=== PATIENT | female | born 1955 | race Caucasian/White ===

== ENCOUNTER 2024-02-25 17:34 | Emergency (ER) | payer OTHER, SELFPAY ==
--- NOTE | 2024-02-25 17:37 | EKG_ITS ---
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
[2024-02-25 17:44] VITALS: BP 165/88; PULSE 86; RESP 16; TEMP 36.8; O2SAT 95; BMI 34.7
--- NOTE | 2024-02-25 18:02 | XR_ITS ---
Examination: PA lateral chest 2 views Technique: Upright PA lateral chest 2 views Indications: Coughing beginning 3 days ago. Exam date and time: February 25, 2024 1800 hrs. Findings: Suspicious for early left base retrocardiac pneumonia, obscuring detail left hemidiaphragm Right lung clear Normal heart size Impression: Suspicious for early left base pneumonia
--- NOTE | 2024-02-25 18:05 | PD.EDRME ---
Rapid Medical Screening Exam E Arrival date/time: 02/25/24 17:34 This is a 68-year-old female that comes into the emergency room with complaints of dizziness and shortness of breath. Patient states that she was dealing with an upper respiratory infection for the about a week and also lost her voice. Patient felt like she was doing a little bit better but yesterday worsened. Patient was seen by a telemetry doctor and was given a prescription for breathing treatments and also cough medicine. Patient states they have not helped her and she now feels anxious, complains of shortness of breath and dizziness. Patient denies past medical history. I have greeted and performed a focused initial assessment of this patient. Initial appropriate labs ordered at this time. A comprehensive ED assessment and evaluation of the patient and analysis of all test and completion of medical decision making process will be conducted by additional ED provider. Chief Complaint: General Adult/Misc Complain Time Seen by Provider: 02/25/24 17:48 Vital signs: Vital Signs Temperature 98.3 F 02/25/24 17:44 Pulse Rate 86 02/25/24 17:44 Respiratory Rate 16 02/25/24 17:44 Blood Pressure 165/88 H 02/25/24 17:44 Pulse Oximetry (%) 95 02/25/24 17:44 Oxygen Delivery Method Room Air 02/25/24 17:44
[2024-02-25 18:13] VITALS: PULSE 76; PULSE 87; RESP 18; O2SAT 99
[2024-02-25] MEDS: SODIUM CHLORIDE RT SOL 0.9% 3 ML NEBU INH (18:13)
[2024-02-25] MEDS: ALBUTEROL RT 2.5 MG/0.5 ML NEBU INH (18:13)
[2024-02-25 18:30] LABS: Basophils % (Auto) 0 % (0-2.5); Eosinophils # (Auto) 0.1 Thou/mm3 (0.0-0.5); Eosinophils % (Auto) 2 % (0-10); Hematocrit 39.8 % (36.0-46.0); Hemoglobin 13.7 g/dL (12.0-16.0); Immature Granulocytes % (Auto) 0 % (0-0); Immature Granulocytes Auto 0.01 Thou/mm3 (0.00-0.00); Lymphocytes # (Auto) 3.7 Thou/mm3 (1.0-4.8); Lymphocytes % (Auto) 57 % (10-50); Mean Corpuscular HGB Conc 34.4 g/dl (31.0-37.0); Mean Corpuscular Hemoglobin 30.9 pg (25.0-35.0); Mean Corpuscular Volume 90 fL (80-100); Monocytes # (Auto) 0.4 Thou/mm3 (0.0-0.8); Monocytes % (Auto) 6 % (0-12); Neutrophils # (Auto) 2.3 Thou/mm3 (1.8-7.7); Neutrophils % (Auto) 35 % (37-80); Nucleated Red Blood Cell % 0 /100 WBC (0); Platelet Count 228 Thou/mm3 (140-440); RDW Standard Deviation 41.1 fL (36.4-46.3); Red Blood Count 4.44 Miln/mm3 (4.00-5.20); White Blood Count 6.5 Thou/mm3 (3.6-11.0)
[2024-02-25 18:46] LABS: B-Type Natriuretic Peptide 75 pg/mL (0-100)
[2024-02-25 18:47] LABS: Alanine Aminotransferase 37 U/L (10-49); Albumin, Serum 4.6 gm/dL (3.4-4.8); Albumin/Globulin Ratio 1.9 (1.2-2.2); Alkaline Phosphatase 83 U/L (46-116); Anion Gap 10 (7-16); Aspartate Amino Transferase 24 U/L (0-34); BUN/Creatinine Ratio 10 Ratio (12-20); Bilirubin,Total 0.5 mg/dL (0.3-1.2); Blood Urea Nitrogen 9 mg/dL (9-23); Calcium 9.5 mg/dL (8.3-10.6); Calcium (Corrected) 9.5 mg/dL (8.5-10.1); Carbon Dioxide 26.3 mMol/L (20.0-31.0); Chloride 105 mMol/L (98-107); Creatinine (Component) 0.9 mg/dL (0.6-1.3); Estimated Creatinine Clearance 61.5 mL/min (>60); Globulin 2.4 gm/dL (2.3-3.5); Glucose 103 mg/dL (74-106); Osmolality,Calculated 279 (275-295); Potassium 4.1 mMol/L (3.4-5.1); Sodium 141 mMol/L (136-145); Troponin I < 0.020 ng/mL (0.0-0.045); eGFR > 60 See Note
[2024-02-25 19:25] VITALS: BP 162/72; PULSE 77; RESP 18; TEMP 36.8; O2SAT 96
--- NOTE | 2024-02-25 19:48 | EDNOTE_ITS ---
ED General RME/HPI General Chief complaint: General Adult/Misc Complain Stated complaint: DIZZY x 2 DAYS, HIGH BP TODAY Time Seen by Provider: 02/25/24 17:48 Arrival date/time: 02/25/24 17:34 Nasal congestion sore throat hoarse voice nighttime cough HPI ongoing for 7 days without a fever although her family members ill with a similar symptoms all after coming home from a vacation in [place]. 2 other friends afflicted with the same illness at the same time is now recovered continues to have his nighttime cough. Telemedicine was contacted yesterday who gave her albuterol inhaler nighttime cough medication however the patient still continues to feel like she cannot breathe and her sinuses are full . Patient denies chest pain or difficulty breathing. Patient is awake alert oriented with stable vital signs RME / HPI RME / HPI narrative: 02/25/24 17:34 This is a 68-year-old female that comes into the emergency room with complaints of dizziness and shortness of breath. Patient states that she was dealing with an upper respiratory infection for the about a week and also lost her voice. Patient felt like she was doing a little bit better but yesterday worsened. Patient was seen by a telemetry doctor and was given a prescription for breathing treatments and also cough medicine. Patient states they have not helped her and she now feels anxious, complains of shortness of breath and dizziness. Patient denies past medical history. I have greeted and performed a focused initial assessment of this patient. Initial appropriate labs ordered at this time. A comprehensive ED assessment and evaluation of the patient and analysis of all test and completion of medical decision making process will be conducted by additional ED provider. Related Data Previous Rx's ?Medication ?Instructions ?Recorded cetirizine 10 mg tablet 10 mg PO QDAY PRN allergy symptoms 02/25/24 #14 tabs prednisone 20 mg tablet See Taper PO BID 3 days #6 tabs 02/25/24 Allergies Allergy/AdvReac Type Severity Reaction Status Date / Time No Known Allergies Allergy Verified 02/25/24 17:37 Review of Systems Review of Systems Narrative Review of Systems: GEN: No fever, no chills, no weight loss EYES: No discharge, no visual changes, no pain HEENT: No ear pain, + congestion, + sore throat,+ lost her voice PULM: No shortness of breath, no cough, no congestion CV: No chest pain, no dyspnea on exertion, no palpitations GI: No nausea, no vomiting, no diarrhea, no pain, no constipation : No frequency, no urgency, no dysuria MUSC/SKEL: No joint pain, no back pain SKIN: No rash PSYCH: No hallucinations, no depression HEME/LYMPH: No easy bleeding or bruising tendencies NEURO: No weakness, no headache Past Medical History Past Medical History CARDIAC: Negative Congestive Heart Failure RESPIRATORY: Negative Chronic Obstructive Pulmonary Disease (COPD) GENITOURINARY: Negative Renal Disease ENDOCRINE: Negative Diabetes Mellitus Type 1 or Diabetes Mellitus Type 2 Social History SMOKING STATUS: Never smoker ED Exam Narrative Physical exam: [General: In mild discomfort but not in any acute distress Head normocephalic HEENT: Eyes pupils are PERRLA EOMs are intact mouth pink moist membranes uvula is midline swallow symmetrical nose: No nasal flaring no rhinorrhea epistaxis. All other subsystems of HEENT are within acceptable limits Neck is supple nontender no edema no JVD no LAD Chest equal chest rise nontender to palpation Respiratory: End expiratory crackles left side greater than right. No tachypnea upper lobes are clear CV: Rate rhythm is regular no murmurs rubs or clicks Abdomen is soft nontender no masses positive bowel sounds all 4 quadrants Back: No CVA tenderness no spinous process tenderness from cervical spine thoracic and lumbar spine Skin: Intact no petechiae rash induration ulceration or crepitus Extremities: Moving all extremity against resistance cap refill less than 2 seconds neurosensory intact Neuro: Awake alert oriented x3 Glascow coma 15 no focal deficits] Course Quality Measures none Orders Category Date Time Status EKG (ED ONLY) *Do not use* NOW Care 02/25/24 17:37 Completed EKG (ED Only) Stat Exams 02/25/24 17:37 Draft XR chest 2V Stat Exams 02/25/24 18:02 Completed BNP [B-Type Natriuretic Peptide] Stat Lab 02/25/24 18:14 Completed CBC Stat Lab 02/25/24 18:14 Completed Comprehensive Metabolic Panel Stat Lab 02/25/24 18:14 Completed Troponin I Stat Lab 02/25/24 18:14 Completed ALBUTEROL RT 0.5ml [Proventil Rt 0.5ml] Med 02/25/24 18:01 Discontinued 2.5 mg INH X1 ONE Sodium Chloride Rt Mayra 0.9% [NS Rt Mayra 0.9%] Med 02/25/24 18:01 Active 3 ml INH PRN PRN Vital Signs Vital signs: Vital Signs Temperature 98.3 F 02/25/24 17:44 Pulse Rate 86 02/25/24 17:44 Respiratory Rate 16 02/25/24 17:44 Blood Pressure 165/88 H 02/25/24 17:44 Pulse Oximetry (%) 95 02/25/24 17:44 Oxygen Delivery Method Room Air 02/25/24 17:44 [facility] Patient data External records reviewed:: [facility] previous records Clinical information provided by:: patient and spouse Social determinants that could affect healthcare access:: none Patient has the following chronic illnesses:: None How is presenting disease/condition affected by chronic disease/condition?: u neffected by Evaluation data The following diagnostics were reviewed and interpreted by me:: lab results and radiology exam(s) Lab and/or radiology exams considered but not ordered:: EKG performed at 1742 shows a ventricular rate of 86 HI interval 139 QRS of 82 QTc of 404 sinus rhythm no significant ST segment elevation depression CBC shows no leukocytosis anemia thrombocytopenia CMP shows no electrolyte imbalances renal impairment transaminitis or T. bili elevation Troponin is negative BMP is negative Chest x-ray as interpreted by me read by radiology as suspicious for very mild left base pneumonia Interpretation Summary: Given the parts of the symptoms have resolved, the patient has no significant loose leukocytosis I am suspicious this is viral. In addition the medicines he already taken I will add a 3-day course of steroids, and cetirizine. Patient is to rest drink plenty of fluids. If there is a worsening of symptoms including spiking of a fever or acute onsets of shortness of breath patient is to return the emergency room for reevaluation. Medications Medications considered but not ordered:: None Medication administrations:: Medication Administration History Sodium Chloride (Sodium Chloride Rt Mayra 0.9% 3 Ml Nebu) 3 ml INH PRN PRN PRN Reason: SOLN Stop: 03/26/24 18:00 Last Admin: 02/25/24 18:13 Dose: 3 ml Documented By: Discontinued Medications Albuterol (Albuterol Rt 2.5 Mg/0.5 Ml Nebu) 2.5 mg INH X1 ONE Stop: 02/25/24 18:02 Last Admin: 02/25/24 18:13 Dose: 2.5 mg Documented By: CHARLEY None Consultations Consultation(s) initiated? (list below): No Diagnosis Differential Diagnosis ED Complaint MDM: Pneumonia viral syndrome URI Most likely diagnosis given after review of the tests above:: Viral syndrome Admission Indicated Admission indicated?: not indicated Explain why admission is indicated or not indicated:: Viral syndrome Admission Request Was there a request for admission?: No Disposition Plan Disposition Plan: Discharge Discharge Attestation Discharge Attestation: The patient and all family members were given an opportunity to ask questions and understood the discharge instructions. Discharge instructions specifically effects, indications for sooner follow up or return to the emergency department, and the expected course of current diagnosis. Patient condition: Stable Medical Decision Making Differential Diagnosis Differential Diagnosis: Pneumonia viral syndrome URI Lab Data 02/25/24 18:14 02/25/24 18:14 Labs: Lab Results 02/25/24 Range/Units 18:14 WBC 6.5 (3.6-11.0) Thou/mm3 RBC 4.44 (4.00-5.20) Miln/mm3 Hgb 13.7 (12.0-16.0) g/dL Hct 39.8 (36.0-46.0) % MCV 90 (80-100) fL MCH 30.9 (25.0-35.0) pg MCHC 34.4 (31.0-37.0) g/dl RDW Std Deviation 41.1 (36.4-46.3) fL Plt Count 228 (140-440) Thou/mm3 Neut % (Auto) 35 L (37-80) % Lymph % (Auto) 57 H (10-50) % [place] % (Auto) 6 (0-12) % Eos % (Auto) 2 (0-10) % Baso % (Auto) 0 (0-2.5) % Neut # (Auto) 2.3 (1.8-7.7) Thou/mm3 Lymph # (Auto) 3.7 (1.0-4.8) Thou/mm3 [place] # (Auto) 0.4 (0.0-0.8) Thou/mm3 Eos # (Auto) 0.1 (0.0-0.5) Thou/mm3 Baso # (Auto) 0.0 (0.0-0.2) Thou/mm3 Immature Gran # (Auto) 0.01 H (0.00-0.00) Thou/mm3 Absolute Nucleated RBC 0.00 (0.00-0.00) Thou/mm3 Immature Gran % 0 (0-0) % Nucleated RBC % 0 (0) /100 WBC Sodium 141 (136-145) mMol/L Potassium 4.1 (3.4-5.1) mMol/L Chloride 105 (98-107) mMol/L Carbon Dioxide 26.3 (20.0-31.0) mMol/L Anion Gap 10 (7-16) BUN 9 (9-23) mg/dL Creatinine 0.9 (0.6-1.3) mg/dL Estim Creat Clear Calc 61.5 (>60) mL/min eGFR > 60 (60 - ) See Note BUN/Creatinine Ratio 10 L (12-20) Ratio Glucose 103 (74-106) mg/dL Calculated Osmolality 279 (275-295) Calcium 9.5 (8.3-10.6) mg/dL Corrected Calcium 9.5 (8.5-10.1) mg/dL Total Bilirubin 0.5 (0.3-1.2) mg/dL AST 24 (0-34) U/L ALT 37 (10-49) U/L Alkaline Phosphatase 83 (46-116) U/L Troponin I < 0.020 (0.0-0.045) ng/mL B-Natriuretic Peptide 75 (0-100) pg/mL Total Protein 7.0 (5.7-8.2) gm/dL Albumin 4.6 (3.4-4.8) gm/dL Globulin 2.4 (2.3-3.5) gm/dL Albumin/Globulin Ratio 1.9 (1.2-2.2) Discharge Plan Plan Patient Disposition: HOME (Self Care) Patient condition on transfer: Stable Prescriptions/Referrals Prescriptions/Med Rec: New prednisone 20 mg tablet See Taper PO BID 3 Days Qty: 6 0RF Taper: Prednisone Taper 20 mg DAILY for 2 Days and 0 Hour 10 mg DAILY for 2 Days and 0 Hour 5 mg DAILY for 7 Days and 0 Hour cetirizine 10 mg tablet 10 mg PO QDAY PRN (Reason: allergy symptoms) Qty: 14 0RF Referrals: Ramos Casillas MD [Primary Care Provider] - In 1 week Problem List Clinical Impression: Viral syndrome Patient/Caregiver Discharge Instructions Other Activity Instructions:: Take the medications prescribed to you as well as the medications I prescribed to you for relief of symptoms if there is worsening of symptoms including shortness of breath productive cough or high fever return the emergency room for reevaluation. Education Materials: ED Viral Syndrome (Adult) Print Language: [place] Leone[place] Stand Alone Forms: Bushra Award Info., Work/School Release, Patient Portal Info Letter SHORTY/ELEAZAR Supervising Physician PA/ELEAZAR Supervising Physician: Refugio Gupta ENP
== END 2024-02-25 20:02 | disposition home or self-care (01) ==
PROVIDERS: Nurse Practitioner Family; Emergency Provider Emergency Medicine; PCP Family Medicine
DX: B34.9 Viral infection, unspecified (principal)
CPT/HCPCS: 36415; 71046; 80053; 83880; 84484; 85025; 93005; 94640; 99283

== ENCOUNTER 2024-02-26 17:26 | Emergency (ER) | payer OTHER, SELFPAY ==
--- NOTE | 2024-02-26 18:03 | PC.NURSE ---
PATIENT TOLD SECURITY THEY WERE LEAVING, GOING HOME. @[id number]
== END 2024-02-26 19:09 | disposition left against medical advice (07) ==
PROVIDERS: Emergency Provider Emergency Medicine
DX: Z53.21 Procedure and treatment not carried out due to patient leaving prior to being seen by health care provider (principal)

== ENCOUNTER → 2024-03-07 | Outpatient (CLI) | payer OTHER, SELFPAY ==
--- NOTE | 2024-03-07 14:08 | XR_ITS ---
Examination: PA lateral chest 2 views TECHNIQUE: Upright PA lateral chest 2 views Exam date and time: March 07, 2024 1449 hours Comparison February 25, 2024 INDICATIONS: Pneumonia left base on earlier chest film FINDINGS: Mild pneumonia left base Right lung clear Normal heart size IMPRESSION: Mild pneumonia remains left base
== END | disposition home or self-care (01) ==
PROVIDERS: PCP Family Medicine; Referring Provider Physician Assistant; Visit Provider Physician Assistant
DX: J18.9 Pneumonia, unspecified organism (principal)
CPT/HCPCS: 71046

== ENCOUNTER → 2024-05-24 | Outpatient (CLI) | payer OTHER, SELFPAY ==
[2024-05-24 08:06] LABS: Collection Type, Urine Clean Catch
[2024-05-24 08:30] LABS: Basophils % (Auto) 0 % (0-2.5); Eosinophils # (Auto) 0.3 Thou/mm3 (0.0-0.5); Eosinophils % (Auto) 4 % (0-10); Hematocrit 38.6 % (36.0-46.0); Hemoglobin 12.9 g/dL (12.0-16.0); Immature Granulocytes % (Auto) 0 % (0-0); Immature Granulocytes Auto 0.01 Thou/mm3 (0.00-0.00); Lymphocytes # (Auto) 3.2 Thou/mm3 (1.0-4.8); Lymphocytes % (Auto) 44 % (10-50); Mean Corpuscular HGB Conc 33.4 g/dl (31.0-37.0); Mean Corpuscular Hemoglobin 31.1 pg (25.0-35.0); Mean Corpuscular Volume 93 fL (80-100); Monocytes # (Auto) 0.5 Thou/mm3 (0.0-0.8); Monocytes % (Auto) 7 % (0-12); Neutrophils # (Auto) 3.3 Thou/mm3 (1.8-7.7); Neutrophils % (Auto) 45 % (37-80); Nucleated Red Blood Cell % 0 /100 WBC (0); Platelet Count 254 Thou/mm3 (140-440); RDW Standard Deviation 43.1 fL (36.4-46.3); Red Blood Count 4.15 Miln/mm3 (4.00-5.20); White Blood Count 7.4 Thou/mm3 (3.6-11.0)
[2024-05-24 08:32] LABS: Bilirubin,Urine Negative (Negative); Blood,Urine Negative (Negative); Clarity,Urine Clear (Clear/Hazy); Color,Urine Lt-Yellow (Lt Yel-Yel); Culture Indicated,Urine Not Indicated; Glucose, Urine Negative (Negative); Ketones,Urine Negative (Negative); Leukocyte Esterase,Urine Positive (Negative); Nitrite,Urine Negative (Negative); PH,Urine 5.5 (5.0-7.0); Protein,Urine Negative (Neg - Trace); RBC,Urine 1 /hpf (0-3); Specific Gravity,Urine 1.012 (1.001-1.035); Squamous Epithelial Cell,Urine 1 /hpf (0-5); Urobilinogen,Urine Negative mg/dL (0.0-1.0); WBC,Urine 1 /hpf (0-5)
[2024-05-24 08:40] LABS: Glucose Estimated Average 108 mg/dL (80-131); Hemoglobin A1C 5.4 % Hgb (4.8-6.0)
[2024-05-24 08:46] LABS: Alanine Aminotransferase 15 U/L (10-49); Albumin, Serum 4.1 gm/dL (3.4-4.8); Albumin/Globulin Ratio 1.9 (1.2-2.2); Alkaline Phosphatase 86 U/L (46-116); Anion Gap 5 (7-16); Aspartate Amino Transferase 19 U/L (0-34); BUN/Creatinine Ratio 17 Ratio (12-20); Bilirubin,Total 0.5 mg/dL (0.3-1.2); Blood Urea Nitrogen 17 mg/dL (9-23); Calcium 9.2 mg/dL (8.3-10.6); Calcium (Corrected) 9.2 mg/dL (8.5-10.1); Carbon Dioxide 27.6 mMol/L (20.0-31.0); Cardiac Risk Estimate 3.8 RATIO (3.7-5.6); Chloride 109 mMol/L (98-107); Cholesterol 169 mg/dL (132-200); Globulin 2.2 gm/dL (2.3-3.5); Glucose 106 mg/dL (74-106); HDL Cholesterol 45 mg/dL (40-60); LDL Cholesterol,Calculated 111 mg/dL (0-130); Osmolality,Calculated 284 (275-295); Potassium 4.4 mMol/L (3.4-5.1); Sodium 142 mMol/L (136-145); Thyroid Stimulating Hormone 4.42 uIU/mL (0.55-4.78); Total Protein 6.3 gm/dL (5.7-8.2); Triglycerides 65 mg/dL (30-150); eGFR > 60 See Note
== END | disposition home or self-care (01) ==
PROVIDERS: PCP Family Medicine; Referring Provider Physician Assistant; Visit Provider Physician Assistant
DX: Z00.00 Encounter for general adult medical examination without abnormal findings (principal); G47.00 Insomnia, unspecified
CPT/HCPCS: 36415; 80053; 80061; 81001; 83036; 84443; 85025

== ENCOUNTER → 2024-05-29 | Outpatient (CLI) | payer OTHER, SELFPAY ==
--- NOTE | 2024-05-29 13:45 | XR_ITS ---
Examination: Screening digital mammography, bilateral Computer aided detection 3-D breast Tomosynthesis, bilateral Date and time of exam: May 29, 2024 1326 hours Compared to mammograms dating to 10/20/2005 Indication: Screening Technique: Nonmagnified MLO, CC views of the breasts to been obtained, reconstructed from 3-D Tomosynthesis images. R2 computer aided detection program utilized for evaluation of suspicious masses and/or abnormal calcifications. 3-D Tomosynthesis images obtained. Findings: Scattered areas of fibroglandular density 4 mm nodule outer right breast CC view, 6.5 cm from the nipple Impression: BI-RADS Category 0: Incomplete: Need additional imaging evaluation 4 mm nodule outer right breast CC view, 6.5 cm from the nipple, recommend follow-up spot tomographic views upper outer quadrant right breast, bilateral breast sonography follow-up to complete the workup.
== END | disposition home or self-care (01) ==
LOC: CDIM 13:13
PROVIDERS: PCP Physician Assistant; Referring Provider Physician Assistant; Visit Provider Physician Assistant
DX: Z12.31 Encounter for screening mammogram for malignant neoplasm of breast (principal); R92.8 Other abnormal and inconclusive findings on diagnostic imaging of breast; N63.10 Unspecified lump in the right breast, unspecified quadrant
CPT/HCPCS: 77063; 77067

== ENCOUNTER → 2024-06-20 | Outpatient (CLI) | payer OTHER, SELFPAY ==
--- NOTE | 2024-06-20 13:30 | XR_ITS ---
Examination: Breast ultrasound, unilateral, right Date and time of exam: June 20, 2024 1333 hours INDICATIONS: Mammogram May 29, 2024 4 mm nodule outer right breast 6.5 cm from the nipple, family history breast cancer Technique: Real-time sanchez scale ultrasonographic imaging performed right breast including all 4 quadrants as well as nipple retroareolar and axillary region. Findings: No cystic or solid mass IMPRESSION: BI-RADS Category 1: Negative study
--- NOTE | 2024-06-20 14:15 | XR_ITS ---
Examination: Diagnostic digital mammography, unilateral, right Computer aided detection 3-D breast Tomosynthesis, unilateral Date and time of exam: June 20, 2024 at 1347 hours INDICATIONS: Mammogram May 29, 2024 4 mm nodule outer right breast 6.6 cm from the nipple Technique: Nonmagnified MLO, CC views of the right breast have been obtained, reconstructed from 3-D Tomosynthesis images. R2 computer aided detection program utilized for evaluation of suspicious masses and/or abnormal calcifications. 3-D Tomosynthesis images obtained. Findings: Scattered areas of fibroglandular density. 8 mm circumscribed nodule is confirmed slightly outer right breast on the spot compression CC view, likely upper right breast on the spot compression MLO view Impression: BI-RADS category 3: Probably benign findings One additional 6 month right mammogram follow-up is needed to document stability of nodule described above
== END | disposition home or self-care (01) ==
LOC: CDIM 13:16
PROVIDERS: PCP Family Medicine; Referring Provider Physician Assistant; Visit Provider Physician Assistant
DX: R92.331 Mammographic heterogeneous density, right breast (principal); N63.10 Unspecified lump in the right breast, unspecified quadrant; Z80.3 Family history of malignant neoplasm of breast
CPT/HCPCS: 76641; 77061; 77065; G0279